=== PATIENT | female | born 1965 | race Caucasian/White ===

== ENCOUNTER 2017-08-18 16:30 | Emergency (ER) | payer OTHER ==
--- NOTE | 2017-08-18 16:54 | EDM.PDOC ---
ED HPI GENERAL MEDICAL PROBLEM - General Chief Complaint: Upper Extremity Injury/Pain Stated Complaint: Chronic Left Wrist Pain Time Seen by Provider: 08/18/17 16:37 Source of Information: Reports: Patient, Family, Old Records, RN, RN Notes Reviewed History Limitations: Reports: No Limitations - History of Present Illness INITIAL COMMENTS - FREE TEXT/NARRATIVE: Patient presents the emergency room at [facility] complaining of left wrist pain. The patient states the pain has been present for well over a year. The patient states that she has been seen by her primary care provider Dr. Adelaide Simms at the and [place]. The patient states that she was told by her PCP that she has not to be using any 5 manipulation devices such as computer mouse. The patient states over the past 4-5 days the pain has progressively gotten worse. The patient states the pain starts on the dorsum of the wrist wraps around and extends down to the volar surface of the left arm. The patient states the pain feels like a stinging/electrical sensation. The patient is able to move her fingers without any difficulty. The patient has active range of motion. The patient denies any numbness or paresthesia. The tingling sensation occurs only with certain movements. The patient denies any complete disuse of the left upper extremity due to her current symptoms. Duration: Chronic Location: Reports: Upper Extremity, Left (Left wrist) Left Wrist Pain Score (Numeric/FACES): 6 - Related Data Allergies Allergy/AdvReac Type Severity Reaction Status Date / Time aspirin Allergy Nausea Verified 08/18/17 16:56 azithromycin [From Zithromax] Allergy Nausea and Verified 08/18/17 16:56 Vomiting Penicillins Allergy Cannot Verified 08/18/17 16:56 Remember Home Meds: Home Meds . [No Known Home Meds] 08/18/17 [History] Past Medical History Respiratory History: Reports: Pneumonia, Recurrent Neurological History: Reports: CVA, Migraines Other Neuro History: At age 7 patient had CVA, unknown why. - Past Surgical History GI Surgical History: Reports: Appendectomy Social & Family History - Tobacco Use Smoking Status *Q: Current Every Day Smoker Years of Tobacco use: 30 Packs/Tins Daily: 0.5 Review of Systems - Review of Systems Review Of Systems: See Below Constitutional: Denies: Chills, Fever, Weakness Respiratory: Denies: Shortness of Breath, Cough Cardiovascular: Denies: Chest Pain, Palpitations GI/Abdominal: Denies: Abdominal Pain, Nausea, Vomiting Musculoskeletal: Reports: Joint Pain, Joint Swelling, Other (Left wrist pain) Skin: Reports: No Symptoms Neurological: Reports: Tingling (Left Wrist). Denies: Dizziness, Headache, Numbness, Paresthesia ED EXAM, GENERAL - Physical Exam Exam: See Below Exam Limited By: No Limitations General Appearance: Alert, No Apparent Distress Respiratory/Chest: No Respiratory Distress, Lungs Clear, Normal Breath Sounds Cardiovascular: Normal Peripheral Pulses, Regular Rate, Rhythm Peripheral Pulses: 2+: Radial (L), Radial (R) GI/Abdominal: Normal Bowel Sounds, Soft, Non-Tender Extremities: Normal Range of Motion, Normal Capillary Refill, Joint Swelling ( joel mild on the dorsum of the left wrist), Other (no obvious bone deformity; no evidence of acute injury; no bruising) Neurological: Alert, Oriented, No Motor/Sensory Deficits Skin Exam: Warm, Dry, Intact, Normal Color, No Rash Course - Vital Signs Last Recorded V/S: Last Vital Signs Temp 36.8 C 08/18/17 16:40 Pulse 103 H 08/18/17 16:40 Resp 16 08/18/17 16:40 BP 143/86 H 08/18/17 16:40 Pulse Ox - Orders/Labs/Meds Orders: Active Orders 24 hr Category Date Time Status Wrist Comp Min 3V Lt [CR] Stat Exams 08/18/17 16:49 Ordered DME for Discharge [COMM] Routine Oth 08/18/17 17:07 Ordered - Radiology Interpretation Free Text/Narrative:: L Wrist 3V: No acute fracture or dislocation - see scanned report in EMR Departure - Departure Time of Disposition: 17:06 Disposition: Home, Self-Care 01 Condition: Good Clinical Impression: Left wrist pain - Discharge Information Instructions: Tendinitis, Wrist Splint, Wrist Pain Forms: ED Department Discharge Additional Instructions: 1. Stay well hydrated and rest 2. Rest, elevate, and ice left wrist several times a day 3. Wear wrist splint at all times 4. See a primary care provider as symptoms warrant 5. You may need to be seen by a Hand specialist if your symptoms persist 6. Call with any questions/concerns - Problem List Review Problem List Initiated/Reviewed/Updated: Yes - My Orders Last 24 Hours: My Active Orders 08/18/17 16:49 Wrist Comp Min 3V Lt [CR] Stat 08/18/17 17:07 DME for Discharge [COMM] Routine - Assessment/Plan Last 24 Hours: My Active Orders 08/18/17 16:49 Wrist Comp Min 3V Lt [CR] Stat 08/18/17 17:07 DME for Discharge [COMM] Routine Plan: Xray reviewed with patient. No acute fracture or dislocation. Patient will be placed in a left wrist splint. Advised to rest, elevate, and ice several times a day. Use Advil/Tylenol as needed. Patient needs to establish care with a PCP. She needs to be seen by Hand Surgeon for further testing and evaluation.
[2017-08-18 17:07] VITALS: BP 143/86
== END 2017-08-18 17:45 | disposition home or self-care (01) ==
LOC: VM.ED 16:30
DX: M25.532 Pain in left wrist (principal); F17.210 Nicotine dependence, cigarettes, uncomplicated; Z88.6 Allergy status to analgesic agent; Z88.0 Allergy status to penicillin; Z88.1 Allergy status to other antibiotic agents
CPT/HCPCS: 73110-LT; 99283

== ENCOUNTER 2018-03-24 22:18 | Emergency (ER) | payer OTHER ==
[2018-03-24] MEDS ORDERED: Ketorolac 10 MG Tab PO ONE (22:38)
[2018-03-24] MEDS ORDERED: Take Home: Cyclobenzaprine 10 MG Tab, 4 Tab Pack PO ONE (22:39)
[2018-03-24 22:40] VITALS: BP 151/78
--- NOTE | 2018-03-24 22:43 | EDM.PDOC ---
ED HPI GENERAL MEDICAL PROBLEM - General Chief Complaint: General Stated Complaint: Left lateral rib pain, cough Time Seen by Provider: 03/24/18 22:30 Source of Information: Reports: Patient History Limitations: Reports: No Limitations - History of Present Illness INITIAL COMMENTS - FREE TEXT/NARRATIVE: Patient comes into the emergency department with left rib pain. Patient states that she has been diagnosed with an upper respiratory infection earlier in the week and has had a severe cough with this. She was sitting at home and had a coughing episode. During this coughing episode she felt a huge pop in the left rib area. She states she felt pain instantly. She denies any shortness of breath , chest pain, dizziness, or lightheadedness. The pain is worse when she moves or tries to lift up her arm. The pain is reproducible. She is resting with her arms at her side the pain is less intense. A deep breath does cause discomfort as well. Pt denies any injury or falls. Onset: Sudden Quality: Reports: Ache, Throbbing Severity: Moderate Improves with: Reports: Immobilization, Rest Worsens with: Reports: Movement Associated Symptoms: Reports: No Other Symptoms - Related Data Allergies Allergy/AdvReac Type Severity Reaction Status Date / Time aspirin Allergy Nausea Verified 03/24/18 22:31 azithromycin [From Zithromax] Allergy Nausea and Verified 03/24/18 22:31 Vomiting Penicillins Allergy Cannot Verified 03/24/18 22:31 Remember Home Meds: Home Meds Albuterol [Ventolin HFA] 2 puff INH Q4H PRN 03/24/18 [History] Past Medical History - Past Health History Medical/Surgical History: Denies Medical/Surgical History Respiratory History: Reports: Pneumonia, Recurrent Neurological History: Reports: CVA, Migraines Other Neuro History: At age 7 patient had CVA, unknown why. - Past Surgical History GI Surgical History: Reports: Appendectomy ED ROS GENERAL - Review of Systems Review Of Systems: See Below Constitutional: Reports: No Symptoms HEENT: Reports: No Symptoms Respiratory: Reports: Pleuritic Chest Pain, Cough Cardiovascular: Reports: No Symptoms Endocrine: Reports: No Symptoms GI/Abdominal: Reports: No Symptoms : Reports: No Symptoms Musculoskeletal: Reports: No Symptoms Skin: Reports: No Symptoms Neurological: Reports: No Symptoms Psychiatric: Reports: No Symptoms Hematologic/Lymphatic: Reports: No Symptoms Immunologic: Reports: No Symptoms ED EXAM, GENERAL - Physical Exam Exam: See Below Exam Limited By: No Limitations General Appearance: Alert, WD/WN, No Apparent Distress Head: Atraumatic, Normocephalic Neck: Normal Inspection, Supple, Non-Tender, Full Range of Motion Respiratory/Chest: No Respiratory Distress, Lungs Clear, Normal Breath Sounds, No Accessory Muscle Use, Chest Non-Tender Cardiovascular: Normal Peripheral Pulses, Regular Rate, Rhythm, No Edema Back Exam: Normal Inspection, Full Range of Motion, Muscle Spasm (left side- muscle tension noted, inflammation, and tenderness upon palpation. No redness or warmth noted. ) Extremities: Normal Inspection Neurological: Alert, Oriented, Normal Gait Psychiatric: Normal Affect, Normal Mood Skin Exam: Warm, Dry, Intact, Normal Color, No Rash Departure - Departure Time of Disposition: 22:57 Disposition: Home, Self-Care 01 Condition: Good Clinical Impression: Muscle strain, Costochondritis - Discharge Information *PRESCRIPTION DRUG MONITORING PROGRAM REVIEWED*: Not Applicable *COPY OF PRESCRIPTION DRUG MONITORING REPORT IN PATIENT ALICE: Not Applicable Instructions: Costochondritis, [id number] Additional Instructions: 1. Apply ice and heat 20 minutes at a time 3-4 times a day 2. Massage the area. Use light touch while massaging 3. Can use an electric stimulator if you have one to help with the muscle spasms 4. Follow-up with menagerie caretaker within the week if not better 5. Apply splinting when needing to cough to help with discomfort 6. Take ibuprofen and Tylenol [id number] to help with pain and discomfort 7. Take cyclobenzaprine only for severe pain and discomfort/muscle spasm 8. Follow-up with her primary care provider if not better in a week 9. Drink lots of fluids. 10. Activity and diet as tolerated - Assessment/Plan Assessment:: 1. muscle strain 2. Costochondritis 3. rib pain Plan: 1. Norflex given in ER 2. Toradol given in ER 3. Apply ice and heat 20 minutes at a time 3-4 times a day, Massage the area. Use light touch while massaging,Can use an electric stimulator if you have one to help with the muscle spasms, Follow-up with menagerie caretaker within the week if not better, Apply splinting when needing to cough to help with discomfort 4. Pt can take ibuprofen and Tylenol [id number] to help with pain and discomfort 7. Take cyclobenzaprine only for severe pain and discomfort/muscle spasm pt sent home with 4
== END 2018-03-24 23:33 | disposition home or self-care (01) ==
LOC: VM.ED 22:18
DX: S29.011A Strain of muscle and tendon of front wall of thorax, initial encounter (principal); M94.0 Chondrocostal junction syndrome [Tietze]; Z88.6 Allergy status to analgesic agent; Z88.0 Allergy status to penicillin; X58.XXXA Exposure to other specified factors, initial encounter
CPT/HCPCS: 96372; 99283; A9270; J2360

== ENCOUNTER 2024-12-07 09:49 | Emergency (ER) | payer OTHER ==
[2024-12-07 10:11] VITALS: BP 176/88; PULSE 83
== END 2024-12-07 10:32 | disposition home or self-care (01) ==
LOC: VM.ED 09:49
DX: S63.91XA Sprain of unspecified part of right wrist and hand, initial encounter (principal); F17.210 Nicotine dependence, cigarettes, uncomplicated; Z86.73 Personal history of transient ischemic attack (TIA), and cerebral infarction without residual deficits; Z79.899 Other long term (current) drug therapy; Z88.5 Allergy status to narcotic agent; Z88.1 Allergy status to other antibiotic agents; Z88.0 Allergy status to penicillin; W01.0XXA Fall on same level from slipping, tripping and stumbling without subsequent striking against object, initial encounter
CPT/HCPCS: 99283